=== PATIENT | female | born 1930 | race Caucasian/White ===

== ENCOUNTER 2021-06-08 08:39 | Day surgery (SDC) | payer MEDICARE ==
[2021-05-31 16:02] LABS: BASOPHILS % (AUTO) 0.6 % (0-1); EOSINOPHILS # (AUTO) 0.2 X10'3 (0-0.9); EOSINOPHILS % (AUTO) 3.1 % (0-6); LYMPHOCYTES # (AUTO) 1.4 X10'3 (1.1-4.8); LYMPHOCYTES % (AUTO) 18.5 % (21-51); MEAN CORPUSCULAR HEMOGLOBIN 31.1 PG (27.0-31.0); MEAN CORPUSCULAR VOLUME 94.4 FL (78-98); MEAN PLATELET VOLUME 7.8 FL (7.4-10.4); MONOCYTES # (AUTO) 1.1 X10'3 (0-0.9); MONOCYTES % (AUTO) 14.3 % (2-12); NEUTROPHILS # (AUTO) 4.9 X10'3 (1.8-7.7); NEUTROPHILS % (AUTO) 63.5 % (42-75); PRE OP HEMATOCRIT 42.8 % (35.0-45.0); PRE OP HEMOGLOBIN 14.1 g/dL (12.0-16.0); PRE OP PLATELET COUNT 224 X10'3 (140-440); RED BLOOD COUNT 4.53 X10'6 (4.20-5.60); RED CELL DISTRIBUTION WIDTH 14.2 % (11.5-14.5)
[2021-05-31 16:21] LABS: ALBUMIN 3.8 G/DL (3.4-5.0); ALBUMIN/GLOBULIN RATIO 1.4 (1.1-1.5); ALKALINE PHOSPHATASE 112 IU/L (46-116); BLOOD UREA NITROGEN 19 MG/DL (7-18); CALCIUM 9.9 MG/DL (8.5-10.1); CHLORIDE 107 MMOL/L (99-107); CREATININE 1.19 MG/DL (0.40-0.90); PRE OP ALT 27 U/L (30-65); PRE OP ANION GAP 8 (8-16); PRE OP AST 26 U/L (10-37); PRE OP BILIRUB, TOTAL 0.6 MG/DL (0.0-1.0); PRE OP GLUCOSE 100 MG/DL (70-104); PRE OP POTASSIUM 3.9 MMOL/L (3.4-5.1); PRE OP SODIUM 144 MMOL/L (135-145); TOTAL CARBON DIOXIDE 28.6 MMOL/L (24-32); TOTAL PROTEIN 6.5 G/DL (6.4-8.2); eGFR 43 ML/MIN
[~2021-06-08] VITALS: Ht 152.4 cm; Wt 56.7 kg
[~2021-06-08 08:39] MED LIST: ATOR20TA66 PO; BUPIVAcaine 0.5% inj/PF 30 ML ONE; DILT-36 PO; GABA300C PO; HYDR12.55 PO; OLME20TA23 PO; PREVAGEN; cefazolin/dext.iso 2gm/50ml IV ONE; clindamycin-Cleocin 900mg/D5W 50 ML IV ONE; famotidine 20mg tablet PO ONE; ringers solution, lacted 1,000 ML IV SCH
[2021-06-08 09:20] VITALS: BP 198/82
[2021-06-08] MEDS ORDERED: LIDOcaine 0.5% (5mg/ml) 50ml vial ONE (09:39)
[2021-06-08] MEDS ORDERED: normal saline 1000ml 1,000 ML IV SCH (10:12)
[2021-06-08] MEDS ORDERED: midazolam 1 mg/ML 2ml injection ONE (11:03)
[2021-06-08] MEDS ORDERED: FENTANYL CITRATE/PF 50 MCG/1 ML VIAL ONE (11:03)
[2021-06-08] MEDS ORDERED: ondansetron/PF 4mg/2ml inj IV PRN (11:10)
[2021-06-08] MEDS ORDERED: ringers solution, lacted 1,000 ML IV SCH (11:10)
[2021-06-08] MEDS ORDERED: proCHLORperazine 10 MG/2 ml inj IV PRN (11:10)
[2021-06-08] MEDS ORDERED: meperidine/PF 25mg/ml syringe IV PRN ×3 (11:10)
[2021-06-08] MEDS ORDERED: morphine 4 MG/ML inj SYRINge IV PRN (11:10)
[2021-06-08] MEDS ORDERED: morphine 2 MG/ML inj. syringe IV PRN (11:10)
[2021-06-08] MEDS ORDERED: propofol inj 20 ML IV ONE (11:16)
[2021-06-08] MEDS ORDERED: BUPIVAcaine 0.5% inj/PF 30 ml vial IJ ONE (11:24)
[2021-06-08 11:34] VITALS: BP 126/84
--- NOTE | 2021-06-08 11:34 | NUR ---
Received from OR via , accompanied by Anesthesiologist DR MINA and report given by Anesthesiolgist. AWAKENS TO VOICE. VITALS STABLE, DRESSING DI. DONNA PAIN. FINGERS COOL AND PINK.
[2021-06-08 11:44] VITALS: BP 134/64
[2021-06-08 11:54] VITALS: BP 130/62
[2021-06-08 12:04] VITALS: BP 134/62
--- NOTE | 2021-06-08 12:24 | NUR ---
AWAKE AND ORIENTED. VITALS STABLE. DRESSING DI. DONNA PAIN. HOME WITH A FRIEND AT THIS TIME.
[2021-06-11] MEDS ORDERED: normal saline 500ml IV soln 500 ML IV SCH (05:30)
[2021-06-11] MEDS ORDERED: famotidine 20mg tablet PO ONE (05:30)
== END 2021-06-08 12:24 | disposition home or self-care (01) ==
LOC: PAS 08:39
PROVIDERS: ATTEND Orthopaedic Surgery Hand Surgery
DX: M67.431 Ganglion, right wrist (principal); I12.9 Hypertensive chronic kidney disease with stage 1 through stage 4 chronic kidney disease, or unspecified chronic kidney disease; N18.4 Chronic kidney disease, stage 4 (severe); F41.9 Anxiety disorder, unspecified; Z87.891 Personal history of nicotine dependence; Z85.3 Personal history of malignant neoplasm of breast; Z85.828 Personal history of other malignant neoplasm of skin; Z91.040 Latex allergy status; Z88.1 Allergy status to other antibiotic agents; Z79.899 Other long term (current) drug therapy; Z90.49 Acquired absence of other specified parts of digestive tract; Z20.822 Contact with and (suspected) exposure to COVID-19
CPT/HCPCS: 25111; 36415; 80053; 82948; 85025; 93005; J2250; J2704; J3010; J3490; J7030; J7120; S0020; U0003; U0005; Z7506; Z7512; A4215; A4618; A7000